=== PATIENT | female | born 1950 | race Caucasian/White ===

== ENCOUNTER → 2017-02-04 | Outpatient (CLI) | payer OTHER ==
[~2017-02-04] MED LIST: ASPIR 8181 M1 PO; CRANBERRY500 M1 PO; IMITREX 50 MG T50 MG PO; LEVOTHYROXIN0.125 M1 PO; LEVOTHYROXINE 0.1 MG PO; MAXZIDE 75-501 EACH PO; ONE-A-DAY WOMENS PO; OXYBUTYNIN 5 MG5 M2 PO; PAROXETINE HCL20 MG PO; POTASSIUM GLUCO99 M1 PO; PRILOSEC OTC20 MG PO; SIMVASTATIN40 MG PO; SYSTANE BALANCE10 ML OPHTHALMIC; VITAMIN C100 MG PO; [UNRECOGNIZED DRUG - OTHER] PO
== END ==
LOC: CAT 08:31
DX: J32.0 Chronic maxillary sinusitis (principal)

== ENCOUNTER 2017-04-24 05:26 | Day surgery (SDC) | payer OTHER ==
[~2017-04-24] VITALS: Ht 167.6 cm; Wt 76.2 kg
--- NOTE | ~2017-04-24 | O ---
[facility] [place] [address] OPERATIVE REPORT Name: RENETTA MORRIS Room #: DEP [facility]#: [id number] Admission: 04/24/17 Attend Phys: Nam Delong MD Discharge: 04/24/17 Date of : 50 Report #: [id number] THIS REPORT FOR: //name// CC: NAM Delong DATE OF SERVICE: 04/24/2017 SURGEON: Nam Delong M.D. PORTABLE MACHINE CUTTER: None. PREOPERATIVE DIAGNOSIS: Nasolacrimal duct obstruction, left sided. POSTOPERATIVE DIAGNOSIS: Nasolacrimal duct obstruction, left sided. OPERATIONS PERFORMED: 1. Incisional dacryocystorhinostomy. 2. Nasal surgical video endoscopy. 3. Silicone intubation. ANESTHESIA: General. COMPLICATIONS: None. INDICATIONS FOR PROCEDURE: This patient has an acquired nasolacrimal duct obstruction with chronic tearing and discharge. The current procedures are undertaken in order to improve the patient's level of comfort and visual clarity and to reduce the risk of recurrent infection. Informed consent was obtained to include but not limited to the potential risk for loss of vision, bleeding, infection, failure to improve the problem, scarring and the potential need for further surgery. DESCRIPTION OF OPERATION: The patient was taken to the operating room, where general anesthesia was administered. The medial canthal area was then generously infiltrated with 2% Xylocaine with epinephrine mixed with equal parts of 0.75% Marcaine with Wydase. The same anesthetic mixture was then used to anesthetize the lateral wall of the nose. The middle meatus was then packed with Afrin-soaked Cottonoids. The patient was subsequently prepped and draped in the usual sterile fashion. A skin-marking pen was then used to outline an incision over the anterior lacrimal crest inferiorly in the medial canthal area. The incision was then made with a 15 blade. The dissection was then carried down through the soft tissue until the periosteum was identified. Hemostasis was achieved with [facility] [address] [place] [address] OPERATIVE REPORT Name: RENETTA MORRIS Driss Room #: DEP [facility].#: [id number] Admission: 04/24/17 Attend Phys: Nam Delong MD Discharge: 04/24/17 Date of : 50 Report #: [id number] diligent monopolar cautery. The periosteum was then incised over the anterior lacrimal crest and then gently reflected laterally out of the lacrimal sac fossa. The lacrimal sac was retracted and the thin bone of the lacrimal sac fossa was gently infractured with a hemostat. Multiple rongeur bites were then used to create an osteotomy that was approximately 1.5 cm in diameter. The nasal mucosa was then injected with the same anesthetic mixture used at the beginning of the case. The nasal mucosa was then incised and an anteriorly hinged nasal mucosal flap made. The flap was drawn out of the field with interrupted 4-0 chromic sutures. The puncta were then dilated with a double-ended punctum dilator. Sidhu tubes were then passed into the lacrimal sac and its margins were identified. A large anteriorly hinged lacrimal sac flap was subsequently created. The Sidhu tubes were passed into the nose on a groove director transnasally. The anterior lacrimal sac flaps and nasal mucosal flaps were closed with interrupted 4-0 chromic sutures. The nasal surgical video endoscope was then brought into the field. The ostium was inspected and found to not be obstructed by the middle turbinate. The ostium was anterior and inferior to the root of the turbinate. There was no evidence of any septal obstruction of the newly created ostium. The subcutaneous structures around the wound were then closed with multiple interrupted 4-0 chromic sutures. The skin was closed with interrupted 6-0 plain gut sutures. The Sidhu tubes were then secured to themselves with 3 square throws. The Sidhu tubes were then secured to the lateral wall of the nose with a 5-0 Prolene suture. Antibiotic steroid drops were then placed on the surface of the eye and an antibiotic ointment on the incision. Two eye pads were then taped in place. The patient was transported to the recovery area, having tolerated the procedure well with no anesthetic or operative complications being noted. <ELECTRONICALLY SIGNED> By: Nam Delong MD 04/28/17 [id number] Nam Delong MD /nt
[2017-04-24 07:00] VITALS: BP 135/59
== END 2017-04-24 09:38 | disposition home or self-care (01) ==
LOC: TBA 05:26 → OR 05:26 → TBA 05:27 → OR 09:38
DX: H04.552 Acquired stenosis of left nasolacrimal duct (principal); I10 Essential (primary) hypertension; E78.5 Hyperlipidemia, unspecified; E03.9 Hypothyroidism, unspecified; G43.909 Migraine, unspecified, not intractable, without status migrainosus; K21.9 Gastro-esophageal reflux disease without esophagitis; F32.89 Other specified depressive episodes; F41.8 Other specified anxiety disorders; Z85.3 Personal history of malignant neoplasm of breast; Z85.850 Personal history of malignant neoplasm of thyroid; Z85.71 Personal history of Hodgkin lymphoma; Z85.830 Personal history of malignant neoplasm of bone; Z85.828 Personal history of other malignant neoplasm of skin; Z88.8 Allergy status to other drugs, medicaments and biological substances; Z79.82 Long term (current) use of aspirin; Z79.899 Other long term (current) drug therapy
CPT/HCPCS: 50010; 50101; 50386; 50398; 51636; 51777; 56528; 56531; 62110; 62900; 70005